=== PATIENT | female | born 1990 | race Caucasian/White ===

== ENCOUNTER 2016-11-04 19:44 | Observation (INO) | payer OTHER ==
[~2016-11-04] VITALS: Ht 172.7 cm; Wt 56.0 kg
[~2016-11-04 19:44] MED LIST: ANUSOL1 SUPP PR; ATIVAN1 MG PO; BACTRIM,SEPT1 TABLET PO; CIPRO250 M1 PO; CLONAZEPAM0.5 MG PO; COLACE50 MG PO; KEFLEX500 MG PO; KEPPRA XR750 MG PO; KEPPRA1000 MG PO; KEPPRA500 MG; LAMICTAL XR200 MG PO; PERCOCET 5/31 TABLET PO; PROCTOFOAM15 GM TP; TOPAMAX100 MG PO; TOPAMAX50 MG PO; VIMPAT100 MG PO; YAZ 28 TABLET1 EACH; ZOFRAN4 MG PO; yaz
[2016-11-04 21:32] LABS: HEMATOCRIT 43.9 % (36.0-46.0); MCH 31.5 PG (29.0-34.0); MCV 87.5 FL (83-99); MEAN PLAT.VOLUME 12.5 uM^3 (9.5-12.4); PLATELET COUNT 204 K/uL (156-360); RBC DIS.WIDTH-CV 12.4 % (11.8-14.6); RBC DIS.WIDTH-SD 39.2 % (39-53); RED BLOOD COUNT 5.02 M/uL (3.80-5.20); WHITE BLOOD COUNT 8.5 K/uL (4.1-10.2)
[2016-11-04 21:36] LABS: CHLORIDE 110 mEq/L (99-109); POTASSIUM 3.6 mEq/L (3.7-5.4); SODIUM 139 mEq/L (136-147)
[2016-11-04 21:38] LABS: GLUCOSE 88 mg/dL (70-99)
[2016-11-04 21:40] LABS: ANION GAP 11 MEQ/L (2-14)
[2016-11-04 21:42] LABS: GFR ESTIMATE (CALCULATED) > 59 mL/min/
[2016-11-04 21:43] LABS: UREA NITROGEN (BUN) 12 mg/dL (9-23)
[2016-11-04 21:50] LABS: QUANTITATIVE HCG < 4.0 MIU/ML
[2016-11-04 22:04] LABS: ADD MIUA? YES; BILIRUBIN NEGATIVE; BLOOD NEGATIVE; COLOR YELLOW ((YELLOW)); GLUCOSE (STRIP) NEGATIVE; KETONES TRACE; LEUKOCYTES NEGATIVE; NITRITE NEGATIVE; PH, URINE 7.5 (5-8); PROTEIN (STRIP) 30; SPECIFIC GRAVITY 1.024 (1.000-1.030); UROBILINOGEN 0.2 MG/DL (0.2-1.0)
[2016-11-04 22:25] LABS: AMORPHOUS PHOSPHATE CRYSTALS 3+; BACTERIA 1+ /HPF; CASTS NONE SEEN /LPF; CRYSTALS PRESENT; EPITHELIAL CELLS 1+ /HPF; MUCUS NONE SEEN /LPF; RED BLOOD CELLS 0-5 /HPF (0-5); UCUL ADDED? NO; WHITE BLOOD CELLS 0-5 /HPF (0-5)
[2016-11-05] VITALS (7 sets, daily range): BP systolic 96–116; BP diastolic 57–74
[2016-11-05] MEDS ORDERED: DEPAKOTE250 MG PO ×2 (00:18→00:19)
[2016-11-05] MEDS ORDERED: CLONAZEPAM1 MG PO (00:18)
[2016-11-05] MEDS ORDERED: YAZ 28 TABLET1 EACH PO (00:19)
[2016-11-05 00:54] LABS: TROP-I INTERPRETATION NEGATIVE; TROPONIN-I < 0.01 ng/mL (0.0-0.30)
[2016-11-06 04:13] VITALS: BP 116/70
[2016-11-06 08:50] VITALS: BP 104/70
[2016-11-06 10:19] LABS: HEMATOCRIT 41.9 % (36.0-46.0); MCH 31.4 PG (29.0-34.0); MCHC 36.3 G/DL (30.0-36.0); MCV 86.6 FL (83-99); MEAN PLAT.VOLUME 12.1 uM^3 (9.5-12.4); PLATELET COUNT 181 K/uL (156-360); RBC DIS.WIDTH-CV 12.6 % (11.8-14.6); RBC DIS.WIDTH-SD 39.3 % (39-53); RED BLOOD COUNT 4.84 M/uL (3.80-5.20); WHITE BLOOD COUNT 7.4 K/uL (4.1-10.2)
[2016-11-06 11:02] LABS: ALKALINE PHOSPHATASE 43 IU/L (3-129); ANION GAP 9 MEQ/L (2-14); CHLORIDE 113 MEQ/L (99-109); GFR ESTIMATE (CALCULATED) > 59 mL/min/; GLUCOSE 85 mg/dL (70-99); MAGNESIUM 2.3 mg/dl (1.3-2.7); POTASSIUM 3.7 MEQ/L (3.7-5.4); SAMPLE HEMOLYSIS CHECK 0; SAMPLE ICTERIC CHECK 0; SAMPLE LIPEMIA CHECK 0; SODIUM 140 MEQ/L (136-147); TOTAL BILIRUBIN 0.9 MG/DL (0.0-1.0); UREA NITROGEN (BUN) 10 mg/dL (9-23)
[2016-11-06 11:30] VITALS: BP 112/70
[2016-11-06 15:42] VITALS: BP 116/70
[2016-11-06 21:48] VITALS: BP 109/71
[2016-11-07 00:01] VITALS: BP 111/76
[2016-11-07 04:44] VITALS: BP 103/65
[2016-11-07 08:16] LABS: EOSINOPHIL (%) 0.8 % (0-5); EOSINOPHIL COUNT 0.1 K/uL (0-0.3); IMMATURE GRANULOCYTE (%) 0.1 % (0.0-0.7); LYMPHOCYTE COUNT 3.2 K/uL (1.0-2.8); MCH 30.6 PG (29.0-34.0); MCHC 35.3 G/DL (30.0-36.0); MCV 86.8 FL (83-99); MEAN PLAT.VOLUME 12.1 uM^3 (9.5-12.4); MONOCYTE (%) 8.6 % (3-12); MONOCYTE COUNT 0.6 K/uL (0-0.8); NEUTROPHIL (%) 46.1 % (45-76); NEUTROPHIL COUNT 3.4 K/uL (1.8-6.4); PLATELET COUNT 152 K/uL (156-360); RBC DIS.WIDTH-CV 12.6 % (11.8-14.6); RBC DIS.WIDTH-SD 40.1 % (39-53); RED BLOOD COUNT 4.38 M/uL (3.80-5.20); WHITE BLOOD COUNT 7.3 K/uL (4.1-10.2)
[2016-11-07 08:43] LABS: ANION GAP 10 MEQ/L (2-14); CHLORIDE 114 MEQ/L (99-109); GFR ESTIMATE (CALCULATED) > 59 mL/min/; POTASSIUM 3.5 MEQ/L (3.7-5.4); SAMPLE HEMOLYSIS CHECK 1; SAMPLE ICTERIC CHECK 0; SAMPLE LIPEMIA CHECK 0; SODIUM 139 MEQ/L (136-147); UREA NITROGEN (BUN) 10 mg/dL (9-23)
[2016-11-07 08:48] LABS: GLUCOSE 109 mg/dL (70-99)
[2016-11-07] MEDS ORDERED: NABI650T PO (11:31)
[2016-11-07 12:58] VITALS: BP 103/76
== END 2016-11-07 14:53 | disposition home or self-care (01) ==
LOC: EME → EDBD 19:44 → EME 19:44 → 5WEST 11-05 00:22 → EDOF 11-05 00:22 → 5WEST 11-05 01:50
PROVIDERS: Emergency Medicine; Hospitalist
DX: G40.909 Epilepsy, unspecified, not intractable, without status epilepticus (principal); E87.6 Hypokalemia; Z82.0 Family history of epilepsy and other diseases of the nervous system; Z82.49 Family history of ischemic heart disease and other diseases of the circulatory system
CPT/HCPCS: 71010; 80048; 80053; 80164; 81003; 83735; 84484; 84702; 85025; 85027; 86038; 87086; 93005; 95819; 99281; 99285; G0378; J0696; J1644; J2060; J7030; J7050; J7120

== ENCOUNTER 2017-04-29 19:18 | Inpatient (IN) | payer OTHER ==
[~2017-04-29] VITALS: Ht 172.7 cm; Wt 64.0 kg
[~2017-04-29 19:18] MED LIST changes: +CLONAZEPAM1 MG PO; +DEPAKOTE250 MG PO; +NABI650T PO; +YAZ 28 TABLET1 EACH PO
[2017-04-29 20:29] LABS: HEMATOCRIT 44.4 % (36.0-46.0); MCH 30.1 PG (29.0-34.0); MCHC 34.2 G/DL (30.0-36.0); MCV 87.9 FL (83-99); MEAN PLAT.VOLUME 11.3 uM^3 (9.5-12.4); PLATELET COUNT 185 K/uL (156-360); RBC DIS.WIDTH-CV 11.9 % (11.8-14.6); RBC DIS.WIDTH-SD 38.5 % (39-53); RED BLOOD COUNT 5.05 M/uL (3.80-5.20); WHITE BLOOD COUNT 6.1 K/uL (4.1-10.2)
[2017-04-29 20:37] LABS: CHLORIDE 111 mEq/L (99-109); POTASSIUM 4.2 mEq/L (3.7-5.4); SODIUM 144 mEq/L (136-147)
[2017-04-29 20:39] LABS: GLUCOSE 92 mg/dL (70-99)
[2017-04-29 20:40] LABS: ANION GAP 8 MEQ/L (2-14)
[2017-04-29 20:43] LABS: GFR ESTIMATE (CALCULATED) > 59 mL/min/
[2017-04-29 20:44] LABS: UREA NITROGEN (BUN) 10 mg/dL (9-23)
[2017-04-29] MEDS ORDERED: KLONOPIN2 MG PO (20:51)
[2017-04-29] MEDS ORDERED: DEPAKOTE500 MG PO (20:52)
[2017-04-29] MEDS ORDERED: KLONOPIN1 MG PO (20:52)
[2017-04-30] MEDS ORDERED: LORYNA 3 MG-0.1 EACH PO (00:25)
[2017-04-30] MEDS ORDERED: MAGNESIUM/ZINC (00:26)
[2017-04-30 01:10] VITALS: BP 110/70
[2017-04-30 03:47] VITALS: BP 105/57
[2017-04-30 10:49] LABS: HEMATOCRIT 42.4 % (36.0-46.0); MCH 30.2 PG (29.0-34.0); MCHC 34.2 G/DL (30.0-36.0); MCV 88.3 FL (83-99); MEAN PLAT.VOLUME 11.7 uM^3 (9.5-12.4); PLATELET COUNT 175 K/uL (156-360); RBC DIS.WIDTH-SD 39.3 % (39-53); WHITE BLOOD COUNT 8.8 K/uL (4.1-10.2)
[2017-04-30 11:24] LABS: ALKALINE PHOSPHATASE 38 IU/L (3-129); ANION GAP 9 MEQ/L (2-14); CHLORIDE 112 MEQ/L (99-109); GFR ESTIMATE (CALCULATED) > 59 mL/min/; GLUCOSE 76 mg/dL (70-99); SAMPLE HEMOLYSIS CHECK 0; SAMPLE ICTERIC CHECK 0; SAMPLE LIPEMIA CHECK 0; SODIUM 139 MEQ/L (136-147); TOTAL BILIRUBIN 0.6 MG/DL (0.0-1.0); UREA NITROGEN (BUN) 12 mg/dL (9-23)
[2017-04-30 14:22] VITALS: BP 109/67
[2017-04-30 16:27] VITALS: BP 109/66
== END 2017-04-30 18:30 | disposition home or self-care (01) | DRG 101 ==
LOC: EME 19:18 → EDOF 23:38 → 3EAST 23:38 → ENRESERV 23:43 → 3EAST 04-30 01:02
PROVIDERS: Emergency Medicine; Internal Medicine
DX: G40.919 Epilepsy, unspecified, intractable, without status epilepticus (principal); F44.5 Conversion disorder with seizures or convulsions; F41.9 Anxiety disorder, unspecified; Z79.899 Other long term (current) drug therapy; Z91.14 Patient's other noncompliance with medication regimen; Z91.19 Patient's noncompliance with other medical treatment and regimen; Z82.0 Family history of epilepsy and other diseases of the nervous system; R51 Headache
CPT/HCPCS: 80048; 80053; 80164; 81003; 85027; J1644; J1953; J2060; J2765; J7030; J7050

== ENCOUNTER 2017-05-15 03:03 | Observation (INO) | payer OTHER ==
[~2017-05-15] VITALS: Ht 175.3 cm; Wt 65.9 kg
[~2017-05-15 03:03] MED LIST changes: +DEPAKOTE500 MG PO; +KLONOPIN1 MG PO; +KLONOPIN2 MG PO; +LORYNA 3 MG-0.1 EACH PO; +MAGNESIUM/ZINC
[2017-05-15 04:11] LABS: HEMATOCRIT 40.5 % (36.0-46.0); MCH 30.3 PG (29.0-34.0); MCHC 34.3 G/DL (30.0-36.0); MCV 88.2 FL (83-99); MEAN PLAT.VOLUME 11.2 uM^3 (9.5-12.4); PLATELET COUNT 182 K/uL (156-360); RBC DIS.WIDTH-CV 12.1 % (11.8-14.6); RBC DIS.WIDTH-SD 38.9 % (39-53); RED BLOOD COUNT 4.59 M/uL (3.80-5.20); WHITE BLOOD COUNT 7.4 K/uL (4.1-10.2)
[2017-05-15 04:24] LABS: CHLORIDE 113 mEq/L (99-109); POTASSIUM 3.8 mEq/L (3.7-5.4); SODIUM 141 mEq/L (136-147)
[2017-05-15 04:26] LABS: GLUCOSE 87 mg/dL (70-99)
[2017-05-15 04:28] LABS: ANION GAP 11 MEQ/L (2-14); TOTAL BILIRUBIN 0.2 mg/dL (0.0-1.0)
[2017-05-15 04:30] LABS: ALKALINE PHOSPHATASE 41 IU/L (3-129); GFR ESTIMATE (CALCULATED) > 59 mL/min/
[2017-05-15 04:31] LABS: UREA NITROGEN (BUN) 9 mg/dL (9-23)
[2017-05-15 04:33] LABS: LIPASE 27 U/L (1.0-51.0)
[2017-05-15 04:34] LABS: CREATINE KINASE 85 IU/L (1-294); TOTAL CK 85 IU/L (1-294)
[2017-05-15 04:39] LABS: QUANTITATIVE HCG < 4.0 MIU/ML
[2017-05-15 05:26] LABS: ADD MIUA? YES; BILIRUBIN NEGATIVE; BLOOD NEGATIVE; COLOR YELLOW ((YELLOW)); GLUCOSE (STRIP) NEGATIVE; KETONES NEGATIVE; LEUKOCYTES NEGATIVE; NITRITE NEGATIVE; PROTEIN (STRIP) NEGATIVE; SPECIFIC GRAVITY 1.012 (1.000-1.030); UROBILINOGEN 0.2 MG/DL (0.2-1.0)
[2017-05-15 05:48] LABS: AMPHETAMINE NEGATIVE (500 ng/mL); BENZODIAZEPINES NEGATIVE (150 ng/mL); COCAINE NEGATIVE (150 ng/mL); METHADONE NEGATIVE (200 ng/mL); METHAMPHETAMINE NEGATIVE (500 ng/mL); OPIATES (MORPHINE) NEGATIVE (100 ng/mL); PHENCYCLIDINE NEGATIVE (25 ng/mL); THC CANNABINOIDS NEGATIVE (50 ng/mL); TRICYCLIC ANTIDEPRESSANTS NEGATIVE (300 ng/mL)
[2017-05-15 05:49] LABS: BARBITURATES NEGATIVE (200 ng/mL); INTERNAL CONTROLS VALID? YES; OXYCODONE NEGATIVE (100 ng/mL); PROPOXYPHENE NEGATIVE (300 ng/mL)
[2017-05-15 05:59] LABS: BACTERIA NONE SEEN /HPF; EPITHELIAL CELLS RARE /HPF; MUCUS TRACE /LPF; RED BLOOD CELLS 0-5 /HPF (0-5); UCUL ADDED? NO; WHITE BLOOD CELLS 0-5 /HPF (0-5)
[2017-05-15 06:02] LABS: CK-MB 0.7 ng/mL (0.0-4.9)
[2017-05-15 06:17] LABS: CARBON DIOXIDE (BICARBONATE) 19.3 MEQ/L (20-31)
[2017-05-15 06:44] LABS: SAMPLE HEMOLYSIS CHECK 0; SAMPLE ICTERIC CHECK 0; SAMPLE LIPEMIA CHECK 0
[2017-05-15 06:50] LABS: SALICYLATE < 3.0 MG/DL (15-30)
[2017-05-15 09:30] LABS: CREATINE KINASE 143 IU/L (1-294); TOTAL CK 143 IU/L (1-294)
[2017-05-15 10:08] VITALS: BP 94/59
[2017-05-15 11:09] LABS: CK-MB 0.7 ng/mL (0.0-4.9)
[2017-05-15 11:37] VITALS: BP 90/53
[2017-05-15] MEDS ORDERED: INTRA UTERINE DEVICE (12:13)
[2017-05-15 15:51] VITALS: BP 97/57
[2017-05-16] VITALS: BP 100/64
[2017-05-16 03:56] VITALS: BP 102/66
[2017-05-16 05:37] LABS: ANION GAP 7 MEQ/L (2-14); CHLORIDE 115 MEQ/L (99-109); GFR ESTIMATE (CALCULATED) > 59 mL/min/; GLUCOSE 93 mg/dL (70-99); POTASSIUM 3.7 MEQ/L (3.7-5.4); SAMPLE HEMOLYSIS CHECK 0; SAMPLE ICTERIC CHECK 0; SAMPLE LIPEMIA CHECK 0; SODIUM 141 MEQ/L (136-147); UREA NITROGEN (BUN) 12 mg/dL (9-23)
[2017-05-16 07:24] VITALS: BP 108/69
[2017-05-16 10:51] VITALS: BP 100/59
== END 2017-05-16 14:19 | disposition home or self-care (01) ==
LOC: EME → EDBD 03:03 → EME 03:03 → 5WEST 07:40 → EDOF 07:40 → ENRESERV 07:53 → 5WEST 09:53 → ENPENDDIS 05-16 → 5WEST 05-16 14:19
PROVIDERS: Emergency Medicine; Internal Medicine
DX: G40.901 Epilepsy, unspecified, not intractable, with status epilepticus (principal); Z88.1 Allergy status to other antibiotic agents; I95.9 Hypotension, unspecified
CPT/HCPCS: 80048; 80053; 80164; 81003; 82140; 82550; 82550 91; 82553; 82803; 83690; 84702; 85027; G0378; G0480; J1650; J2060; J2405; J7030; J7120; S0028

== ENCOUNTER 2017-05-27 00:39 | Inpatient (IN) | payer OTHER ==
[~2017-05-27] VITALS: Ht 175.3 cm; Wt 63.2 kg
[~2017-05-27 00:39] MED LIST changes: +INTRA UTERINE DEVICE
[2017-05-27 01:29] LABS: HEMATOCRIT 45.8 % (36.0-46.0); MCH 30.3 PG (29.0-34.0); MCHC 34.9 G/DL (30.0-36.0); MCV 86.7 FL (83-99); PLATELET COUNT 193 K/uL (156-360); RBC DIS.WIDTH-CV 12.1 % (11.8-14.6); RBC DIS.WIDTH-SD 38.5 % (39-53); RED BLOOD COUNT 5.28 M/uL (3.80-5.20); WHITE BLOOD COUNT 6.4 K/uL (4.1-10.2)
[2017-05-27 01:33] LABS: CHLORIDE 116 mEq/L (99-109); POTASSIUM 3.3 mEq/L (3.7-5.4); SODIUM 147 mEq/L (136-147)
[2017-05-27 01:35] LABS: GLUCOSE 83 mg/dL (70-99)
[2017-05-27 01:37] LABS: ANION GAP 14 MEQ/L (2-14)
[2017-05-27 01:39] LABS: GFR ESTIMATE (CALCULATED) > 59 mL/min/
[2017-05-27 01:40] LABS: UREA NITROGEN (BUN) 7 mg/dL (9-23)
[2017-05-27 01:42] LABS: CREATINE KINASE 352 IU/L (1-294); TOTAL CK 352 IU/L (1-294)
[2017-05-27 01:48] LABS: QUANTITATIVE HCG < 4.0 MIU/ML
[2017-05-27 01:49] LABS: CK-MB 1.8 ng/mL (0.0-4.9)
[2017-05-27 03:46] LABS: SAMPLE HEMOLYSIS CHECK 0; SAMPLE ICTERIC CHECK 0; SAMPLE LIPEMIA CHECK 0
[2017-05-27 06:37] VITALS: BP 81/51
[2017-05-27 08:14] VITALS: BP 98/64
[2017-05-27 11:47] VITALS: BP 95/59
[2017-05-27 14:03] LABS: ADD MIUA? NO; BILIRUBIN NEGATIVE; BLOOD NEGATIVE; COLOR YELLOW ((YELLOW)); GLUCOSE (STRIP) NEGATIVE; KETONES NEGATIVE; LEUKOCYTES NEGATIVE; NITRITE NEGATIVE; PROTEIN (STRIP) NEGATIVE; SPECIFIC GRAVITY 1.014 (1.000-1.030); UROBILINOGEN 0.2 MG/DL (0.2-1.0)
[2017-05-27 14:24] LABS: AMPHETAMINES QUANT VALUE 0 NG/ML; BARBITUATES QUANT VALUE 0 NG/ML; BENZODIAZEPINES QUANT VALUE 0 NG/ML; BENZODIAZEPINES, URINE SCREEN Negative (200 ng/mL); MARIJUANA QUANT VALUE 0 NG/ML; OPIATES QUANTITATIVE VALUE 0 NG/ML; PHENCYCLIDINE QUANT VALUE 0 NG/ML
[2017-05-27 15:19] VITALS: BP 102/65
[2017-05-27] MEDS ORDERED: LORYNA 3 MG-0.1 EACH PO (16:17)
[2017-05-27 19:33] VITALS: BP 101/60
[2017-05-28 00:04] VITALS: BP 101/62
[2017-05-28 03:54] VITALS: BP 102/56
[2017-05-28 06:23] LABS: HEMATOCRIT 39.6 % (36.0-46.0); MCH 30.2 PG (29.0-34.0); MCHC 33.8 G/DL (30.0-36.0); MCV 89.2 FL (83-99); MEAN PLAT.VOLUME 11.1 uM^3 (9.5-12.4); PLATELET COUNT 165 K/uL (156-360); RBC DIS.WIDTH-CV 12.1 % (11.8-14.6); RBC DIS.WIDTH-SD 39.6 % (39-53); RED BLOOD COUNT 4.44 M/uL (3.80-5.20); WHITE BLOOD COUNT 6.8 K/uL (4.1-10.2)
[2017-05-28 06:35] LABS: ANION GAP 10 MEQ/L (2-14); CHLORIDE 113 MEQ/L (99-109); GFR ESTIMATE (CALCULATED) > 59 mL/min/; GLUCOSE 91 mg/dL (70-99); MAGNESIUM 1.9 mg/dl (1.3-2.7); POTASSIUM 3.7 MEQ/L (3.7-5.4); SAMPLE HEMOLYSIS CHECK 0; SAMPLE ICTERIC CHECK 0; SAMPLE LIPEMIA CHECK 0; SODIUM 140 MEQ/L (136-147); UREA NITROGEN (BUN) 7 mg/dL (9-23)
[2017-05-28 11:50] VITALS: BP 100/68
[2017-05-28 19:53] VITALS: BP 103/69
[2017-05-28 20:50] VITALS: BP 119/99
[2017-05-28 23:33] VITALS: BP 111/77
[2017-05-29 01:35] VITALS: BP 100/59
[2017-05-29 03:44] VITALS: BP 102/66
[2017-05-29 07:44] VITALS: BP 102/61
[2017-05-29] MEDS ORDERED: DEPAKOTE250 MG PO (09:04)
== END 2017-05-29 10:15 | disposition home or self-care (01) | DRG 101 ==
LOC: EME → EDBD 00:39 → EME 00:39 → 5SOUTH 04:41 → EDOF 04:41 → ENRESERV 04:43 → 5SOUTH 05:20 → ENRESERV 05:21 → 5SOUTH 06:10
PROVIDERS: Emergency Medicine; Hospitalist
DX: G40.419 Other generalized epilepsy and epileptic syndromes, intractable, without status epilepticus (principal); E87.2 Acidosis; E87.6 Hypokalemia; F44.5 Conversion disorder with seizures or convulsions
CPT/HCPCS: 80048; 80164; 80306 90; 81003; 82140; 82550; 82553; 83735; 84702; 85027; 93005; 99281; 99285; J1953; J2060; J7030; J7050

== ENCOUNTER 2018-02-01 20:47 | Inpatient (IN) | payer BC ==
[~2018-02-01] VITALS: Ht 175.3 cm; Wt 68.5 kg
[2018-02-01 21:23] LABS: HEMATOCRIT 39.8 % (36.0-46.0); HEMOGLOBIN 14.1 G/DL (11.9-15.5); MCH 29.9 PG (29.0-34.0); MCHC 35.4 G/DL (30.0-36.0); MCV 84.5 FL (83-99); PLATELET COUNT 193 K/uL (156-360); RBC DIS.WIDTH-CV 11.9 % (11.8-14.6); RBC DIS.WIDTH-SD 36.3 % (39-53); RED BLOOD COUNT 4.71 M/uL (3.80-5.20); WHITE BLOOD COUNT 7.5 K/uL (4.1-10.2)
[2018-02-01 21:33] LABS: ALBUMIN 4.3 g/dL (3.2-4.8); CHLORIDE 111 mEq/L (99-109); POTASSIUM 3.8 mEq/L (3.7-5.4); SODIUM 138 mEq/L (136-147)
[2018-02-01 21:35] LABS: GLUCOSE 87 mg/dL (70-99); TOTAL PROTEIN 7.5 g/dL (6.4-8.3)
[2018-02-01 21:37] LABS: TOTAL BILIRUBIN 0.5 mg/dL (0.0-1.0)
[2018-02-01 21:38] LABS: ALKALINE PHOSPHATASE 39 IU/L (3-129)
[2018-02-01 21:39] LABS: CREATININE 0.8 mg/dL (0.6-1.3); GFR ESTIMATE (CALCULATED) > 59 mL/min/
[2018-02-01 21:40] LABS: AST (GOT) 12 IU/L (2-34); UREA NITROGEN (BUN) 14 mg/dL (9-23)
[2018-02-01 21:42] LABS: ALT (GPT) 10 IU/L (3-49); CREATINE KINASE 65 IU/L (1-294)
[2018-02-01 21:47] LABS: QUANTITATIVE HCG < 4.0 MIU/ML
[2018-02-01 23:45] LABS: APPEARANCE SL.HAZY ((CLEAR)); BILIRUBIN NEGATIVE; BLOOD NEGATIVE; COLOR YELLOW ((YELLOW)); GLUCOSE (STRIP) NEGATIVE; KETONES NEGATIVE; LEUKOCYTES NEGATIVE; NITRITE NEGATIVE; PROTEIN (STRIP) 30; SPECIFIC GRAVITY 1.015 (1.000-1.030); UROBILINOGEN 0.2 MG/DL (0.2-1.0)
[2018-02-01 23:47] LABS: BACTERIA NONE SEEN /HPF; EPITHELIAL CELLS RARE /HPF; MUCUS NONE SEEN /LPF; RED BLOOD CELLS 0-5 /HPF (0-5); WHITE BLOOD CELLS 0-5 /HPF (0-5)
[2018-02-02] VITALS (8 sets, daily range): BP systolic 82–101; BP diastolic 48–71
[2018-02-02 05:04] LABS: VALPROIC ACID (DEPAKOTE) < 10.0 MCG/ML (50-100)
[2018-02-02 12:03] LABS: CHLORIDE 118 MEQ/L (99-109); CREATININE 0.7 MG/DL (0.6-1.3); GFR ESTIMATE (CALCULATED) > 59 mL/min/; GLUCOSE 90 mg/dL (70-99); POTASSIUM 3.9 MEQ/L (3.7-5.4); SODIUM 142 MEQ/L (136-147); UREA NITROGEN (BUN) 10 mg/dL (9-23)
[2018-02-03 07:42] VITALS: BP 94/57
[2018-02-03 17:29] VITALS: BP 102/61
[2018-02-04] VITALS: BP 105/66
[2018-02-04 07:16] VITALS: BP 99/66
[2018-02-04] MEDS ORDERED: DILANTIN100 MG PO (12:07)
== END 2018-02-04 15:07 | disposition home or self-care (01) | DRG 101 ==
LOC: EME 20:47 → EDOF 02-02 00:43 → 5SOUTH 02-02 00:43 → ENRESERV 02-02 00:47 → 5SOUTH 02-02 02:08 → ENPENDDIS 02-04 12:19 → 5SOUTH 02-04 15:07
PROVIDERS: Hospitalist; Physician Assistant
DX: G40.919 Epilepsy, unspecified, intractable, without status epilepticus (principal); F41.9 Anxiety disorder, unspecified; F32.9 Major depressive disorder, single episode, unspecified; I10 Essential (primary) hypertension; I95.9 Hypotension, unspecified; Z96.89 Presence of other specified functional implants
CPT/HCPCS: 71045; 72040; 80048; 80053; 80164; 80185; 81003; 82150; 82550; 84146; 84702; 85027; 99281; 99285; J1165; J1953; J2060; J2250; J7030; J7050